=== PATIENT | male | born 1930 | race Caucasian/White ===

== ENCOUNTER 2016-06-26 14:50 | Inpatient (IN) | payer MEDICARE ==
[~2016-06-26] VITALS: Ht 182.9 cm; Wt 113.9 kg
--- NOTE | ~2016-06-26 | CON ---
PATIENT'S NAME: ANGELA JUÁREZ [facility] AGE: 85 Y [address] ROOM: [address] [place], [place] [address] LOCATION: GPCU ADMIT DATE: 06/28/2016 Consultation DISCHARGE DATE: FAMILY PHYSICIAN: Gatito Monge MD ATTENDING PHYSICIAN: DULCE SAVAGE V DATE OF CONSULTATION: 06/30/2016 REFERRING PHYSICIAN: Norman Coelho MD NEUROLOGICAL CONSULTATION DATE AND TIME: On 06/30/2016 at 11:10 a.m. REASON FOR CONSULTATION: Change in level of consciousness. HISTORY OF PRESENT ILLNESS: This is an 85-year-old, male, transferred from [place], [place] for chest pain, 01/10, which was left-sided and radiated down his arm. He states he usually gets this kind of chest pain with mild activity, however, this time it came on suddenly and was not relieved by activity or rest so he was brought to our hospital, and there were plans to do a heart catheterization. Yesterday, he was sleeping in the recliner and the nurse went to wake him up and he would not wake up. They did a sternal rub to get him to wake up. They were able to stand and pivot him to the bed, but I had seen him shortly after that, and his assessment was not at his baseline. He would open eyes to verbal stimulus. He would withdraw uppers, but he would not follow commands with his uppers and he would withdraw his lowers, but not follow any commands. He was nonverbal at the time and would return to sleep when not stimulated. His pupils were equal and reactive. There were no odd movements and his vital signs were stable. His Accu-Cheks at that time were normal. We were consulted to evaluate this event. After 2 hours, the patient was verbal and moving all 4s and stated he was very hungry. Today when we are seeing him, the patient is back to his baseline status according to his and son. REVIEW OF SYSTEMS: The patient is amnesic to the events of yesterday. He denies any aura to the event. He denies any recent incontinence or vision issues. No shortness of breath related with this event. Denies any weakness from one side or the other. All others systems were reviewed and are negative except for the pertinent positives and negatives mentioned above. PAST MEDICAL HISTORY: PATIENT'S NAME: ANGELA JUÁREZ [facility] AGE: 85 Y [address] ROOM: [address] [place], [place] [address] [facility] AD[facility] DATE: 06/28/2016 Consultation DISCHARGE DATE: FAMILY PHYSICIAN: Gatito Monge MD ATTENDING PHYSICIAN: DULCE SAVAGE V Includes: 1. Hypertension. 2. Hypercholesterolemia. 3. Coronary artery disease. He had a CABG in 2010. 4. He also has insulin-dependent diabetes and diabetic neuropathy. 5. In 2010, reviewing the records from [facility], he had an event of very similar to this, where Neurology did see him. His EEG at that time was normal. The H and P from the neurologist states that they were going to start an AED, however, the patient says he was not started on any new medications. The patient seems to be a fair historian. His also concurs with the story. SOCIAL HISTORY: The patient is and has a supportive son here. He did chew tobacco but has quit many years ago. He does not smoke. FAMILY HISTORY: There is no history of seizures in his family and no history of stroke in his family. No history of blood clots in his family. CURRENT MEDICATIONS: His current medications include: 1. Amlodipine. 2. Aspirin 81 mg p.o. q. day. 3. Hydrochlorothiazide 12.5 mg daily. 4. Lantus insulin. 5. Lyrica. 6. Meclizine p.r.n. for dizziness. However, the patient states he does not take this very often. 7. NovoLog insulin 3 times a day. 8. Atorvastatin 40. 9. Cinnamon. 10. Losartan and hydrochlorothiazide. 11. Vaso-Prophin. PHYSICAL EXAMINATION: VITAL SIGNS: Temperature 97.9, pulse 68, respirations 16, and blood pressure 134/78. He is saturating 96% on room air. GENERAL: This is a jovial man who is a good historian and has good hygiene. He is in no acute distress. NEUROLOGICAL: Pupils equal and reactive to light and accommodation. Extraocular movements are intact. His NIH Stroke Scale is 0. He has intact sensation to light touch and temperature in all extremities. Extremity strength 5/5 in upper and lower extremities. LYMPHATIC: Shows no cervical lymphadenopathy. PATIENT'S NAME: ANGELA JUÁREZ [facility] AGE: 85 Y [address] ROOM: [address] [place], [place] [address] [facility] AD[facility] DATE: 06/28/2016 Consultation DISCHARGE DATE: FAMILY PHYSICIAN: Gatito Monge MD ATTENDING PHYSICIAN: DULCE SAVAGE V HEENT: Head is atraumatic and normocephalic. LUNGS: Clear to auscultation. NECK: No nuchal rigidity or bruits auscultated. HEART: S1 and S2 with no murmurs, gallops, or rubs. ABDOMEN: Soft, nontender, and nondistended. Normal bowel sounds. GENITOURINARY: Deferred. VASCULAR: Reveals 2+ pedal pulses with 1+ pitting edema in the bilateral lower extremities which the patient states is normal for him. IMAGING DATA: A CT of his head was performed immediately after the event, it shows periventricular small-vessel ischemic changes with no evidence of ischemia or hemorrhage. Electroencephalogram was also completed immediately after the event. The EEG is mostly within normal limits with no epileptiform discharges or seizures seen during the recording. A prolactin level was drawn, however, this was probably about 40 minutes after the start of the event. It was 7.5. Of note, when looking at the graphic heart rate, there was a transient acute increase in heart rate to around 100 at the initiation of the event. ASSESSMENT AND PLAN: This is an 85-year-old, male, who presents with an episode that very could well be a seizure. He has not had any of these episodes since he was hospitalized in 2010 at [facility]. 1. Possible seizure. Since the patient has not had an episode for 6 years, we will not start an AED medication. The patient is advised not to drive and to follow safety precautions relative to seizures. He is also advised to follow up with Neurology, if these events ever happen again. From a Neurology standpoint, he is okay to continue with heart catheterization and discharge pending Hospitalist and Cardiology plan. The plan of care was developed with Dr. Savage Rojo, who examined the patient with Milana Capps APRN. Thank you for this interesting consult. Please let us know if you have any questions, and please reconsult if needed. MILANA CAPPS APRN FOR SAVAGE ROJO MD PP/camilo /[id number] d: t: 06/30/16 1933, CONSULTATION REPORT
--- NOTE | ~2016-06-26 | DS ---
PATIENT'S NAME: ANGELA JUÁREZ [facility] AGE: 85 Y [address] ROOM: [address] [place], [place] [address] LOCATION: GPCU ADMIT DATE: 06/28/2016 Discharge Summary DISCHARGE DATE: 07/01/2016 FAMILY PHYSICIAN: Gatito Monge MD ATTENDING PHYSICIAN: Gulshan Gill V PRINCIPAL DIAGNOSES: 1. Unstable angina. 2. Coronary artery disease, status post coronary artery bypass graft in 2010. 3. Type 2 diabetes. 4. Essential hypertension. HOSPITAL COURSE: An 85-year-old male with known risk factors including coronary artery disease and CABG who presents with chest pain and admitted for evaluation of unstable angina. The patient was closely followed up by Cardiology Dr. Plaza during hospitalization and had initially stress test that was positive for possible ACS and had a followup cardiac cath, which showed significant stenosis in the RCA and is status post stents placement x2 today. The patient is on a dual antiplatelet therapy with aspirin and Plavix and he is to continue this. The patient of note did have an episode of unresponsiveness briefly 2 days ago and had a workup including evaluation by Neurology for an acute stroke and all that was negative. The patient does have a history of a seizure disorder like symptoms in the past; however, was never really diagnosed with that fully. This current episode does look like it was perhaps seizure episode and confusion following that was probably postictal state. At this point, in consultation with Neurology, the plan is to have the patient follow up with the Neurology Clinic outpatient and take it from there. Overall, the patient today is chest pain free, ambulating very well, and is without complaints. The patient will be discharged with dual antiplatelet therapy. We will also adjust his home diabetic regimen and will use 15 units of Levemir nightly and moderate scale sliding scale insulin. I have instructed the patient to avoid using high doses of short-acting insulin at home, which per records show that he was taking 40 units of NovoLog with meals t.i.d. PHYSICAL EXAMINATION: GENERAL: The patient is awake, alert, oriented x3, in no acute distress. CHEST: Clear to auscultation bilaterally. HEART: S1, S2, regular rate and rhythm. ABDOMEN: Soft, nontender, nondistended. EXTREMITIES: Without edema. NEURO: Nonfocal. MEDICATIONS: Per JUN. Modifications include: PATIENT'S NAME: [employer], ANEGLA L [facility] AGE: 85 Y [address] ROOM: [place] [address] LOCATION: GPCU ADMIT DATE: 06/28/2016 Discharge Summary DISCHARGE DATE: 07/01/2016 FAMILY PHYSICIAN: Gatito Monge MD ATTENDING PHYSICIAN: Gulshan Gill V 1. Levemir 15 units nightly plus moderate scale sliding scale insulin. 2. Aspirin 81 mg daily. 3. Plavix 75 mg daily. DISPOSITION: The patient is to follow up with Outpatient Neurology Clinic, Cardiology, and primary care physician. Greater than 30 minutes were spent in discharge planning and facilitating. MD KALEY VENTURA/camilo /[id number] d: 07/02/16 0624 t: 07/18/16 1418, DISCHARGE SUMMARY
--- NOTE | ~2016-06-26 | CON ---
PATIENT'S NAME: ANGELA JUÁREZ [facility] AGE: 85 Y [address] ROOM: [address] [place], [place] [address] LOCATION: GPCU ADMIT DATE: 06/26/2016 Consultation DISCHARGE DATE: FAMILY PHYSICIAN: Gatito Monge MD ATTENDING PHYSICIAN: DULCE SAVAGE V DATE OF CONSULTATION: 06/27/2016 REFERRING PHYSICIAN: Norman Coelho MD Patient of Dr. Savage. Dear Dr. Savage: Thank you for asking me to see Mr. Juárez, who is an 85-year-old male patient, who was hospitalized with about 11 hours of chest pain. Yesterday's pain occurred fairly sharply 10 on a scale of 1-10 associated with some shortness of breath without any other radiation or associated features. Gradually, the pain seemed to have come down and gotten better. Currently, he is pain free. His initial EKG is essentially unremarkable with mostly nonspecific ST-T wave changes. There is, however, an incomplete right bundle-branch block noted. The patient has been having this kind of chest pain for the past 6 months. Today is the first time that the pain occurred at rest. Prior to that, they usually occurred when he tries to put his socks on his right foot and the pain starts in the left precordial area and generally last about an hour and spontaneously resolved. He has not been taking nitroglycerin because he is on a preparation by the name of Vaso-Prophin which is an L-arginine preparation of some kind. The patient has no other chest pains. He has a history of having had a syncopal spell and very mild discomfort in his chest in 2010 which was evaluated and he eventually ended up with three-vessel bypass grafting in [facility]. Since then, he has been doing well and has not had any major problems up until 6 months ago. Currently, he seemed to be in functional class 2. He appears to be doing some ambulation without any significant problems. He is in functional class 2-3 because of the pace with which he moves. He walks about 300 feet without any problems of chest pains or shortness of breath. There is no paroxysmal nocturnal dyspnea or orthopnea. He has never been diagnosed with sleep apnea. He has no history of lightheadedness, dizziness, syncope, or presyncope after the surgery. He denies any palpitations or ankle swelling. The patient has a history of hypertension, type 2 diabetes, elevated cholesterol, and he used to chew tobacco until the mid 1980s. He never smoked cigarettes. There is no family history of premature coronary artery disease. There is no prior history of LA, rheumatic fever, heart murmur, congestive PATIENT'S NAME: [facility] AGE: 85 Y [address] ROOM: [address] [address] LOCATION: GPCU ADMIT DATE: 06/26/2016 Consultation DISCHARGE DATE: FAMILY PHYSICIAN: Gatito Monge MD ATTENDING PHYSICIAN: DULCE SAVAGE V heart failure, or atrial fibrillation. MEDICATIONS: His current list of medications are: 1. Losartan and hydrochlorothiazide 100/25 once a day. 2. Atorvastatin 40 mg a day. 3. Tamsulosin 0.4 mg a day. 4. Norvasc 10 mg a day. 5. Lyrica 150 mg a day. 6. Aspirin 81 mg a day. 7. Meclizine 25 mg 1 to 2 tablets q.i.d. p.r.n. insulin. 8. Holton XL. 9. Vaso-Prophin. ALLERGIES: NO KNOWN DRUG ALLERGIES. PAST MEDICAL HISTORY: 1. History of vasectomy. 2. Tonsillectomy and adenoidectomy. 3. Rib removed from the left side number of years ago for an infection. 4. Cataract surgery. 5. Carpal tunnel surgery. 6. Three back surgeries for spinal stenosis. SOCIAL HISTORY: He is . He denies abusing alcohol. His appetite and weight have been stable. Sleep is fair. FAMILY HISTORY: No premature coronary artery disease. REVIEW OF SYSTEMS: 1. A 12-point review of systems reveal corrective lenses. 2. Dizziness, intermittently. 3. History of DVT in 2008. 4. Weak bladder. 5. History of polyps at the time of colonoscopy. 6. DJD. 7. History of shingles, right hip area. 8. Skin cancers. PHYSICAL EXAMINATION: VITAL SIGNS: On examination, his blood pressure is 160s/80s, heart rate is in the 60s and 70s, regular with PACs and occasional PVC. Respirations are 18, PATIENT'S NAME: [facility] AGE: 85 Y [address] ROOM: [address] [place], [place] [address] [facility] AD[facility] DATE: 06/26/2016 Consultation DISCHARGE DATE: FAMILY PHYSICIAN: Gatito Monge MD ATTENDING PHYSICIAN: DULCE SAVAGE V afebrile. HEENT: Normal. NECK: Supple. No JVD, thyromegaly, lymphadenopathy, or carotid bruit. PMI is not well located. First and second heart sounds are regular. There are no added sounds or murmurs. CHEST: Clear. ABDOMEN: Soft. EXTREMITIES: Reveal no edema. CENTRAL NERVOUS SYSTEM: Intact. LABORATORY DATA: His troponins are negative. His D-dimer is negative. ASSESSMENT: 1. An 85-year-old, male patient with known coronary artery disease presenting with a prolonged rest pain. 2. He is ruled out for myocardial infarction and his D-dimer levels are normal. RECOMMENDATIONS: 1. Echocardiogram today. 2. Lexiscan Cardiolite study in the morning. We will get hold of his bypass report from [facility]. Again, I appreciate this opportunity to participate in the care of Mr. Juárez. MD SHAGGY AVILA/camilo /[id number] d: 06/27/16 1756 t: 06/28/16 1234, CONSULTATION REPORT
--- NOTE | ~2016-06-26 | NDGEN ---
PATIENT'S NAME: ANGELA JUÁREZ [facility] AGE: 85 Y [address] ROOM: [address] [address] [facility] AD[facility] DATE: 06/28/2016 Neurodiagnostics DISCHARGE DATE: FAMILY PHYSICIAN: Gatito Monge MD ATTENDING PHYSICIAN: DULCE SAVAGE V PROCEDURE: ELECTROENCEPHALOGRAM DATE OF PROCEDURE: 06/29/2016 TEST: TECH: CLINICAL DIAGNOSIS: DURATION OF EE minutes. REASON FOR EEG: Unresponsiveness/syncope. CLINICAL HISTORY: The patient is an 85-year-old male who was transferred from [place] after he had left-sided chest pain. At this time, the pain was different that it was sudden in onset and not relieved by any activity or rest. EEG FINDINGS: The patient is awake for 50-60% of the EEG, drowsy for remaining. During the awake portions of EEG, 8-9 Hz background seen in the posterior head region which is symmetrical. Activation procedures included photic stimulation between 3-30 Hz, which did not show any abnormalities. CLASSIFICATION: Normal, awake, drowsy 10/20 scalp electrodes. IMPRESSION: This EEG is mostly within normal limits. No epileptiform discharges or EEG seizures were seen during this recording. MD SHIRA STARK/camilo /[id number] dtt: 07/01/16 0855 , DARIUSZ JUARES dtd: 06/29/16 2327
--- NOTE | ~2016-06-26 | ECHO ---
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 Summary The estimated left ventricular ejection fraction is 55-60% with normal WM.The left ventricle is mildly dilated .Mild concentric left ventricular hypertrophy. Mild aortic sclerosis. Trivial MR and TR. Procedure Type of Study TTE procedure:2D Echocardiogram, M-Mode, Doppler , Color Doppler. Procedure Date Date: 06/27/2016 Start: 09:44 AM Study Location: Inpatient Portable Technical Quality: Adequate visualization Indications:Chest pain. Appropriate Use Criteria: 9 Patient Status: Routine HR: 73 bpm BP: 141/74 mmHg M-Mode/2D Measurements LV Diastolic Dimension: 5.91 cm LV Systolic Dimension: 3.77 cm LV Septum Diastolic: 1.26 cm LV PW Diastolic: 1.18 cm AO Root Dimension: 2.8 cm Cardiac Output: 6.88 l/min LA Dimension: 3.7 cm EF Estimated: 60 % LVOT: 2.2 cm LVOT VTI: 24.8 cm RV Base: 2.8 cm LV Stroke volume: 94.23 ml RV Length: 6.99 cm TAPSE: 2.03 cm TDI-S': 11.4 cm/s Doppler Measurements AV Peak Velocity: 1.91 m/s MV Peak E-Wave: 0.82 m/s AV Peak Gradient: 14.59 mmHg MV Peak A-Wave: 0.99 m/s AV Mean Gradient: 9 mmHg MV E/A Ratio: 0.83 LVOT Peak Velocity: 1.13 m/s MV P1/2t: 80 msec TR Gradient:24.21 mmHg PV Peak Velocity: 1.24 m/s Estimated RAP:3 mmHg PV Peak Gradient: 6.15 mmHg Estimated RVSP: 27 mmHg Estimated PASP: 27.21 mmHg E' Septal Velocity: 0.05 m/s A' Septal Velocity: 0.1 m/s E' Lateral Velocity: 0.07 m/s A' Lateral Velocity: 0.12 m/s Findings Left Ventricle The left ventricle is mildly dilated .Mild concentric left ventricular hypertrophy with normal EF and WM. Right Ventricle Normal right ventricle structure and function. Left Atrium Normal left atrial size. Right Atrium Normal right atrial size. IVC measures 1.85 cm with inspiratory collapse. Mitral Valve Trivial mitral regurgitation by color Doppler. Aortic Valve The aortic valve is mildly sclerotic. Tricuspid Valve Trivial tricuspid regurgitation by color Doppler. Pulmonic Valve Trivial pulmonic valve regurgitation by color Doppler. Pericardial Effusion No evidence of pericardial effusion. Miscellaneous Visualized portions of the aortic root and ascending aorta appear normal in size. Pleural Effusion No evidence of pleural effusion. Contractility Score LV regional wall motion:(0-Non visualized 1-Normal 2-Hypokinesis 3-Akinesis 4-Dyskinesis 5-Aneurysm) Signature dtt: Susanne Dao dtd: 06/27/16 0944 Physician Self Edit
--- NOTE | ~2016-06-26 | HP ---
PATIENT'S NAME: ANGELA JUÁREZ [facility] AGE: 85 Y [address] ROOM: [place] [address] LOCATION: GPCU ADMIT DATE: 06/26/2016 History & Physical DISCHARGE DATE: FAMILY PHYSICIAN: Gatito Monge MD ATTENDING PHYSICIAN: DULCE SAVAGE V DATE OF SERVICE: CHIEF COMPLAINT: Chest pain. HISTORY OF PRESENT ILLNESS: The patient is an 85-year-old male transferred from [place]. He has a past medical history of coronary artery disease status post CABG. The patient presented to the hospital in [place] today with complaints of 10/10 left- sided sharp chest pain which radiated down his left arm. The patient reports that he occasionally gets this kind of chest pain when he is engaged in some mild physical activity such as putting on his socks and attributes it to a pulled muscle in his chest. However, he reports that this time it came on suddenly and was not relieved by any activity or rest. The patient was seen at a hospital in [place]. He was not placed on nitro because the patient takes an ugsn-bun-wvivzap supplement called Vaso- Prophin. This substance has L-arginine and is taken for sexual dysfunction. L-arginine is a nitric oxide activator and I think that is why nitro was contraindicated. His workup at the outside facility was only significant for CK-MB which was 60. Here, his cardiac enzymes and EKG are unremarkable. At this point, the patient complains of only chest pain that is 3/10 though he appears very comfortable eating Jell-O. REVIEW OF SYSTEMS: Significant for dyspnea that was accompanying his symptoms but no palpitations, diaphoresis, or syncope. All systems have been reviewed and are negative aside for pertinent positives mentioned above. PAST MEDICAL HISTORY: As reported by the patient is that of hypertension, hypercholesterolemia, coronary artery disease status post CABG, insulin-dependent diabetes, diabetic neuropathy. He is not a very good historian and I am not sure if he has any other medical problems. PATIENT'S NAME: ANGELA JUÁREZ [facility] AGE: 85 Y [address] ROOM: [place] [address] LOCATION: GPCU ADMIT DATE: 06/26/2016 History & Physical DISCHARGE DATE: FAMILY PHYSICIAN: Gatito Monge MD ATTENDING PHYSICIAN: DULCE SAVAGE V SOCIAL HISTORY: The patient was never a smoker but was a chewer of tobacco. Denies any toxic habits. FAMILY HISTORY: Reviewed and is noncontributory due to advanced age and multiple medical problems. CURRENT MEDICATIONS: 1. Amlodipine 10. 2. Aspirin 81. 3. Hydrochlorothiazide 12.5. 4. Lantus 10. 5. Lyrica 150. 6. Meclizine 25. 7. NovoLog 40 units subcu three times a day. 8. Atorvastatin 40. 9. Cinnamon. 10. Losartan-hydrochlorothiazide. 11. Vaso-Prophin. PHYSICAL EXAMINATION: VITAL SIGNS: Temperature 97.9, pulse is 64, respirations 16, blood pressure 159/81, saturating 96% on room air. GENERAL: Appears as a morbidly obese elderly male, in no acute distress. NEUROLOGIC: Nonfocal. EYES: Shows pupils are equal and reactive to light. LYMPHATIC: Shows no cervical lymphadenopathy. ENDOCRINE: Shows no thyromegaly. LUNGS: Clear to auscultation in all johnson. HEART: Heart rate is irregular with no appreciable murmurs, gallops, or rubs. ABDOMEN: Soft, nontender, and nondistended with normoactive bowel sounds. : Reveals no costovertebral angle tenderness. VASCULAR: Reveals 2+ pedal pulses with 1+ pitting bilateral lower extremity edema which patient endorses as chronic. SKIN: Warm and dry. PSYCHIATRIC: Reveals slightly peculiar mood and affect and delayed cognition, though I think these are not unexpected for his age. IMAGING DATA: EKG reveals sinus arrhythmia with left axis deviation and low voltage in limb leads. LABORATORY DATA: Lab results are unremarkable including cardiac enzymes. PATIENT'S NAME: ANGELA JUÁREZ [facility] AGE: 85 Y [address] ROOM: [place] [address] [facility] AD[facility] DATE: 06/26/2016 History & Physical DISCHARGE DATE: FAMILY PHYSICIAN: Gatito Monge MD ATTENDING PHYSICIAN: DULCE SAVAGE V ASSESSMENT AND PLAN: This is an 85-year-old male who will be admitted with intermediate chest pain. We will request records from his primary film producer, Dr. Coelho. We will monitor him on telemetry. We will obtain another set of cardiac enzymes. We will request a Cardiology consultation so we can decide on a stress test versus other modalities. Additional issues to be addressed 1. Insulin-dependent diabetes. We will continue the patient on sliding scale insulin while inpatient. 2. Essential hypertension. We will continue him on his antihypertensive regimen. 3. Diabetic neuropathy. We will continue him on his Lyrica. 4. Goals of care. The patient has a DNR with him and we will reaffirm that with the patient. 5. Additional management will depend on clinical course. Time dedicated to this patient's encounter is 25 minutes. MD RYNE ASENCIO/camilo /[id number] D: [id number] T: [id number] HISTORY & PHYSICAL
--- NOTE | ~2016-06-26 | ESTC ---
Cardiac Perfusion Imaging Demographics Patient Name LAWYER ANGELA Sam Gender Male Patient Number [id number] Race Visit Number [id number] Ethnicity Corporate ID Room Number G6312 Accession Number [id number] Height 72 inches Date of 1930 Weight 254 pounds MD Saleem Grimaldo MD Interpreting Sylwia Skinner Date of study 06/28/2016 Physician Supervising /ELIZABETH NM Technologist Colin Garcia Ordering Physician Sylwia Skinner Stress Krystal Garza MD mobile service rv technician RVT Stress ECG Reading [facility] Susanne Nurse Crista Quinn Physician inspector ball points Procedure Type: Nuclear Stress Test:Pharmacological, Lexiscan, Cardiolite Stress Test Procedure Start time: 06/28/2016 08:45 Indications: Chest pain. Risk Factors The patient risk factors include:prior CABG;treated hypercholesterolemia, treated hypertension, diabetes mellitus and dyslipidemia. Conclusions Summary TID. Medium sized area of fixed defect of basal 2/3 rd of the inferior wall of moderate degree most consistent with soft tissue attenuation. Normal EF and WM. Stress Protocols Resting ECG RSR. Pre-stress physical exam: Un changed. Predicted HR: 133 bpm ECG Findings No ECG changes suggestive of ischemia. Arrhythmias PVCs and couplets. Symptoms Chest pain with Lexiscan. Imaging Results High risk findings Summed scores - LV dilatation (TID) - Summed stress score: 16 - Summed rest score: 7 - Summed difference score: 9 Stress ejection Ejection fraction:65 % EDV :93 ml ESV :33 ml Stroke volume :60 ml LV mass :111 gr LV size:Normal Normal LV function Imaging Protocols Rest Stress Isotope:Tc99m Sestamibi IV Isotope: Tc99m Sestamibi IV Isotope dose:14.9 mCi Isotope dose:44 mCi Date:06/28/2016 07:34 Date:06/28/2016 09:45 Technique: SPECT Technique: Gated Supine SPECT Supine IV remains in place after procedure. Scan Time:30 minutes post injection Scan Time:45-60 minutes post injection Procedure Medications - Regadenoson (Lexiscan) 0.4 mg IV over 10-15 sec. I.V. . Medical History Admission Data Admission date: 06/28/2016 Admission Time: 16:30 Hospital Status: Inpatient. Signatures dtt: Susanne Dao dtjesusita: 06/28/16 0845 Physician Self Edit
--- NOTE | ~2016-06-26 | CATH ---
Cardiac Diagnostic + PCI Report Demographics Patient Name LAWYER ANGELA Sam Gender Male Date of 1930 Age 85 year(s) Patient Number [id number] Date of Study 06/30/2016 Visit Number [id number] Room Number G6312 [place] [id number] Ht 182.88 cm Wt 113.9 kg Referring Monge Primary Physician Physician Gatito BRISCOE Performing Sylwia Secondary Physician Physician Susanne BRISCOE Diagnostic Sylwia Assisting Physician Physician Susanne BRISCOE Interventional Sylwia Physician Telegraph Office Manager Physician Susanne BRISCOE Findings and Conclusions Diagnostic Findings and Conclusion DANIELS to LAD open. Moderate diffuse disease. SV graft to D1 and OM open. [place] D1 and OM mod diffuse disease. LVEDP 18. Calcification involving proximal coronaries. 3/3 bypasses open. [place] RCA 75-90% long prox/mid lesion. Diagnostic Recommendations PCI of RCA Interventional Findings and Conclusion PTCA/Stent RCA 75-90% - 0%. JOSE ALFREDO 3 flow. Perclosed. Interventional Recommendations Continue medical therapy. Procedure Description The patient was brought to the diagnostic cardiac catheterization-EP laboratory in the fasting, non-sedated state. Informed consent was obtained in the written and verbal form after the risks and benefits were explained. The patient had no further questions and agreed to proceed. The planned puncture-incision site(s) were shaved and prepped with ChloraPrep and draped in the usual sterile manner. Conscious sedation, supplemental oxygen, and pain control medications were delivered by a registered nurse under physician guidance. Surface ECG rhythm, blood pressure measurement, and pulse oximetry were monitored throughout the procedure. Arterial access. The access site was infiltrated with lidocaine. The vessel was entered with the Seldinger technique. A sheath was advanced into the vessel and used for catheter placement. Selective left coronary angiography. A catheter was advanced into the left coronary vessel ostium under Fluoroscopic guidance. Contrast was injected by hand. Images were obtained in multiple projections. Selective right coronary angiography. A catheter was advanced into the right coronary vessel ostium under fluoroscopic guidance. Contrast was injected by hand. Images were obtained in multiple projections. Left heart catheterization. A catheter was advanced across the aortic valve to the left ventricle under fluoroscopic guidance. Resting hemodynamics were obtained. Angioplasty and Stent Placement: A guiding catheter was used to intubate the vessel. A 0.14 wire was then used to cross the lesion. A balloon catheter was placed across the lesion and inflated. The balloon catheter was then removed. A Drug Eluting Stent was placed and inflated. Post placement angiograms were performed. Arterial artery hemostasis was achieved. The patient was transferred to a regular nursing floor via cart accompanied by a nurse. The patient left the laboratory in stable condition. Diagnostic Cath Status: Urgent Interventional Cath Status: Urgent Procedure Procedure Type Diagnostic procedure:Angiography:, Coronary Angios w/[facility] PCI procedure:Drug Eluting Coronary Stent:, RCA Indications: Positive Nuclear: Intermediate. Angiographic Findings Dominance: Right Cardiac Arteries and Lesion Findings LMCA: Lesion on LMCA: 80% stenosis . LAD: Lesion on Mid LAD: 60% stenosis . Comments:After D1 Lesion on 1st Diag: Ostial.80% stenosis . LCx: Lesion on 1st Ob Mindy% stenosis . RCA: Lesion on Prox RCA: Mid subsection.90% stenosis 40 mm length reduced to 0%. Pre procedure JOSE ALFREDO II flow was noted. Post Procedure JOSE ALFREDO III flow was present. The guidewire cross was successful.The lesion was diagnosed as a low risk lesion.The lesion was diffuse.Culprit lesion. Treatment results:Interventional treatment was successful. Devices used - Luge Wire .014 x 182. Number of passes: 1. - Emerge Balloon 2.25 x 20. 1 inflation(s) to a max pressure of: 8 rickie. - Promus Premier 2.25 x 32 Stent. 1 inflation(s) to a max pressure of: 14 rickie. - Grand Slam Wire 0.14 x 180. Number of passes: 1. - Promus Premier 2.25 x 8 Stent. 1 inflation(s) to a max pressure of: 16 rickie. - NC Emerge Balloon 2.25 x 20. 2 inflation(s) to a max pressure of: 16 rickie. Cardiac Grafts - There is a graft that originates at the Aorta Left and attaches to the 1st Diag (Open).The graft from 1st Diag jumps to 2nd Ob Mindy. - There is a DANIELS graft that originates at the DANIELS and attaches to the Mid LAD (Open). Coronary Tree Procedure Data Procedure Date Date: 06/30/2016Start: 02:26 PMEnd: 04:31 PM Entry Locations - Retrograde Percutaneous access was performed through the Right Femoral artery (Primary location). A 7 Fr sheath was inserted. This was exchanged for a 7 Fr sheath. Procedure Medications Order and Administration + + + + + !Time !Medication !Dosage !Route ! + + + + + !06/30/2016 02:20 PM !Fentanyl !50 mcg !I.V. ! + + + + + !06/30/2016 02:20 PM !Versed !1 mg !I.V. ! + + + + + !06/30/2016 02:47 PM !Heparin (ACC_3) !24809 units !I.V. bolus ! + + + + + !06/30/2016 03:14 PM !Integrilin (ACC_7) !20.4 mg !I.V. bolus ! + + + + + !06/30/2016 03:15 PM !Integrilin (ACC_7) !2 mcg/kg/min !I.V. drip ! + + + + + !06/30/2016 03:23 PM !Integrilin (ACC_7) !20.4 mg !I.V. bolus ! + + + + + !06/30/2016 03:28 PM !0.9% NaCl !100 ml !I.V. bolus ! + + + + + !06/30/2016 03:29 PM !Nitroglycerin !100 mcg !I.C. ! + + + + + !06/30/2016 03:31 PM !Versed !1 mg !I.V. ! + + + + + !06/30/2016 03:34 PM !Fentanyl !50 mcg !I.V. ! + + + + + !06/30/2016 03:56 PM !Oxygen !4 l/min !NC ! + + + + + !06/30/2016 04:20 PM !Plavix (ACC_8) !600 mg !P.O. ! + + + + + !06/30/2016 04:20 PM !Aspirin (ACC_4) !325 mg !P.O. ! + + + + + Devices Used - A6 Fr. BS JR 4 Diag. Catheterwas used for:Right coronary angiography. - A6 Fr. BS IMT Diag. Catheterwas used for:DANIELS. - A6 Fr. BS JL 4 Diag. Catheterwas used for:Left coronary angiography. - A6 Fr. AR1 guide catheterwas used for:RCA Intervention. - A6 Fr. AR1 guide catheterwas used for:RCA Intervention. - A6 Fr. JR4 Guide Catheterwas used for:RCA Intervention. - A6 Fr. 3DRC JJ Guide Catheterwas used for:RCA Intervention. Contrast Material - Isovue 259353 ml Fluoroscopy Time: Diagnostic: 53:18 minutes. Total: 53:18 minutes. Fluoroscopy Dose: Diagnostic: 6652 mGy. Total: 6652 mGy. Estimated Blood Loss: [address] [facility] PCI Information PCI Indication:PCI for high risk Non-STEMI or unstable angina. Medical History Allergies - Other:(Indomethacin). Risk Factors The patient risk factors include: prior CABG on 03/02/2011;treated hypercholesterolemia, treated hypertension, insulin-treated diabetes mellitus, last creatinine: 1.1 mg/dl, creatinine clearance: 76.22 ml/min and dyslipidemia. Admission Data Admission Date: 06/28/2016 Admission Time: 04:30 PM Insurance Payors: Private health insurance and Medicare. Clinical Evaluation Leading to Procedure - The patient's CAD presentation was assessed as: Unstable angina. - The patient's anginal syndrome during the past two weeks was assessed as: Class IV according to the [place] Cardiovascular Society Classification System (CCS). Anti-anginal medications were prescribed during the past two weeks. The medication is: Ca channel Blockers. Hemodynamics Condition: Rest O2 Consumption: Estimated: 261.86Heart Rate: 65 bpm Pressures (mmHg) +-----+ + !Site !Pressure ! +-----+ + !AO !123/62 (87) ! +-----+ + !LV !152/8 ,18 ! +-----+ + !LV !152/12 ,19 ! +-----+ + !AO !152/72 (101) ! +-----+ + !LV !153/9 ,27 ! +-----+ + !AO !120/67 (89) ! +-----+ + Valve Gradients and Areas + +---------+---------+---------+ +---------+ + !Valve !Peak !Mean !Area !Index !Flow !Source ! + +---------+---------+---------+ +---------+ + !Aortic !0 !0 ! ! ! ! ! + +---------+---------+---------+ +---------+ + !Aortic !0 !0 ! ! ! ! ! + +---------+---------+---------+ +---------+ + Shunts Oxygen Values O2 Capacity 195.84 O2 Consumption 261.86 Discharge Data Discharge Date: 07/01/2016 Hospital Status: Inpatient Signatures dtt: Susanne Dao dtjesusita: 06/30/16 1426 Physician Self Edit
[2016-06-26] MEDS ORDERED: HYZAAR 100-251 EACH PO (18:10)
[2016-06-26] MEDS ORDERED: LIPITOR40 MG PO (18:11)
[2016-06-26] MEDS ORDERED: FLOMAX0.4 MG PO (18:11)
[2016-06-26] MEDS ORDERED: NORVASC10 MG PO (18:12)
[2016-06-26] MEDS ORDERED: LYRICA 150MG C150 MG PO (18:13)
[2016-06-26] MEDS ORDERED: ASPIRIN325 MG PO (18:14)
[2016-06-26] MEDS ORDERED: MECLIZINE HCL25 MG PO (18:16)
[2016-06-26] MEDS ORDERED: NOVOLOG100 UNIT/M SUB-Q (18:17)
[2016-06-26] MEDS ORDERED: [UNRECOGNIZED DRUG - OTHER] PO (18:23)
[2016-06-26] MEDS ORDERED: OMEGA XL PO (18:23)
--- NOTE | 2016-06-26 18:47 | NUR ---
Significant Event: A/O x3, cooperative with cares. SBP 150, HR 62, oxygen at 2 liters. Rating chest pain 2/10 in L) lateral chest. Stood at bedside to use urinal; c/o dizziness at that time. Dr. Gill notified of admission Follow up:
--- NOTE | 2016-06-26 18:51 | NUR ---
Patient present to ER in [place] with c/o chest pain that started around noon. Rated pain 10/10 et was in L) anterior chest et down L) arm; was also dizzy (c/o room spinning), diaphoretic et short of breath at that time. Patient states that this has been going on for approximatley a month on et off but only last for a brief amount of time. Recieved metoprolol in ER as unable to treat with nitro d/t patient having taken an OTC male enhancement supplement the night before. HX 3 vessel CABG in 2010, bilateral shoulder surgeries, R) total knee, neck surgery, CAD, IDDM
[2016-06-26 19:17] LABS: BASOPHIL # 0.1 K/uL (0.0-0.2); BASOPHIL % 0.5 %; EOSINOPHIL # 0.4 K/uL (0.0-0.5); HEMATOCRIT 43.8 % (33.0-50.0); HEMOGLOBIN 14.5 g/dL (11.0-16.0); IMMATURE GRANULOCYTE % 0.4 %; LYMPHOCYTE # 2.4 K/uL (0.8-4.0); LYMPHOCYTE % 21.8 %; MCH 29.4 pg (27.0-34.0); MCHC 33.1 gm/dL (32.0-36.5); MCV 88.8 fl (83.0-98.0); MONOCYTE # 0.9 K/uL (0.0-1.0); MONOCYTE % 8.6 %; NEUTROPHIL % 64.7 %; NRBC % 0 /100WBC (0-0.00); PLATELET COUNT 169 K/uL (150-450); RBC 4.93 M/uL (3.50-5.50); RDW-CV 13.2 % (11.9-14.6); WBC 10.8 K/uL (4.0-11.0)
[2016-06-26 19:31] LABS: ALBUMIN 3.5 gm/dL (3.5-5.0); ALK PHOS 100 IU/L (33-138); ALT 18 IU/L (12-78); ANION GAP 11.5 (10.0-19.0); AST 13 IU/L (10-40); BLOOD UREA NITROGEN 15 mg/dL (6-24); CALCIUM 8.4 mg/dL (8.5-10.5); CHLORIDE 100 mMol/L (96-110); CO2 31 mMol/L (22-32); CPK 105 IU/L (35-332); CREATININE 1.1 mg/dL (0.6-1.3); ESTIMATED GFR (MDRD EQUATION) > 60; MAGNESIUM 1.9 mg/dL (1.3-2.6); PHOSPHORUS 2.3 mg/dL (2.5-4.9); POTASSIUM 3.5 mMol/L (3.7-5.1); SODIUM 139 mMol/L (135-145); TOTAL BILIRUBIN 0.4 mg/dL (0.0-1.5); TOTAL PROTEIN 6.7 g/dL (6.0-8.4)
[2016-06-26 21:24] LABS: BILIRUBIN URINE NEGATIVE (NEGATIVE); BLOOD URINE NEGATIVE /UL (NEGATIVE); COLOR URINE YELLOW (YELLOW); GLUCOSE URINE NEGATIVE (NEGATIVE); KETONE URINE NEGATIVE (NEGATIVE); LEUKOCYTES URINE NEGATIVE /UL (NEGATIVE); NITRITE URINE NEGATIVE (NEGATIVE); PROTEIN URINE NEGATIVE (NEGATIVE); TURBIDITY URINE CLEAR (CLEAR); UROBILINOGEN URINE NORMAL (NORMAL)
[2016-06-27 00:53] LABS: CPK 103 IU/L (35-332)
--- NOTE | 2016-06-27 04:37 | NUR ---
Pt alert and very talkative all noc. vss on ra, afebrile, nsr. sba. fww to rr. incontinent of urine-urgency. no chest pain all noc. cardiac enzymes negative so far. next at 0600. Plan: trend enzymes, d/c?
[2016-06-27 06:02] LABS: BASOPHIL % 0.4 %; EOSINOPHIL # 0.4 K/uL (0.0-0.5); EOSINOPHIL % 4.6 %; HEMATOCRIT 43.3 % (33.0-50.0); HEMOGLOBIN 14.4 g/dL (11.0-16.0); IMMATURE GRANULOCYTE % 0.3 %; LYMPHOCYTE # 1.8 K/uL (0.8-4.0); LYMPHOCYTE % 19.1 %; MCH 29.6 pg (27.0-34.0); MCHC 33.3 gm/dL (32.0-36.5); MCV 88.9 fl (83.0-98.0); MONOCYTE # 0.9 K/uL (0.0-1.0); MPV 9.6 fl (9.4-12.4); NEUTROPHIL % 65.6 %; NRBC % 0 /100WBC (0-0.00); PLATELET COUNT 147 K/uL (150-450); RBC 4.87 M/uL (3.50-5.50); RDW-CV 13.2 % (11.9-14.6); WBC 9.1 K/uL (4.0-11.0)
[2016-06-27 06:12] LABS: PTT 29 SECONDS (25-32)
[2016-06-27 06:20] LABS: CPK 91 IU/L (35-332)
[2016-06-27 06:22] LABS: ALBUMIN 3.2 gm/dL (3.5-5.0); ALK PHOS 91 IU/L (33-138); ALT 17 IU/L (12-78); ANION GAP 13.7 (10.0-19.0); AST 11 IU/L (10-40); BLOOD UREA NITROGEN 16 mg/dL (6-24); CALCIUM 8.6 mg/dL (8.5-10.5); CHLORIDE 102 mMol/L (96-110); CO2 28 mMol/L (22-32); CREATININE 1.1 mg/dL (0.6-1.3); ESTIMATED GFR (MDRD EQUATION) > 60; POTASSIUM 3.7 mMol/L (3.7-5.1); SODIUM 140 mMol/L (135-145); TOTAL BILIRUBIN 0.9 mg/dL (0.0-1.5); TOTAL PROTEIN 6.4 g/dL (6.0-8.4)
[2016-06-27 11:12] LABS: CPK 94 IU/L (35-332)
--- NOTE | 2016-06-27 11:30 | NUR ---
Diabetes consult: Patient with Type II diabetes and current A1C of 7.4%. Diabetes survival skill checklist reviewed with the patient. The patients sees Dr. Plata in [facility] for his diabetes. Patient reports he was taken of his Levemir and instructed to take Novolog 40 units with every meal. Patient denies having frequent low blood sugars at home. Patient denies any questions.
[2016-06-27 14:41] LABS: CPK 107 IU/L (35-332)
--- NOTE | 2016-06-27 15:12 | NUR ---
Introduced self and role of care management to patient and family. He lives with his in [facility]. He states that terri is able to do some of his own ADL's. His does assist as needed. He uses a cane at home. He plans on returning home on discharge. He denies any needs at this time. Will continue to follow.
--- NOTE | 2016-06-27 16:42 | NUR ---
Significant Event: A/O x3, cooperative with cares. VSS, SBPs 130-160s, HRs 60-70s, on room air. C/O headache; resolved by the time tylenol order obtained. Dr. Dao seen patient; aneesh ordered for tomorrow. PT/OT eval et tx patient; ambulate ha with SBA et walker. Follow up: NPO after midnight
--- NOTE | 2016-06-28 04:50 | NUR ---
PT SLEPT OFF AND ON ALL NIGHT. SBA FWW. BED/CHAIR ALARMS AT ALL TIMES. UNSTEADY OCCASIONALLY. KEEP WALKER WITHIN REACH JUST IN CASE. VSS RA AFEBRILE. PLAN: NUC STRESS TODAY
--- NOTE | 2016-06-28 10:55 | NUR ---
Diabetes consult: Patient is down having a stress test. Visited with patient's and son at bedside. reports the patient has been meeting with a coding educator in [place]. denies questions or concerns.
--- NOTE | 2016-06-28 16:36 | NUR ---
Significant Event: A/O x3, cooperative with cares. VSS, SBPs 120-150s, HRs 70s, on room air. No c/o pain. Lexiscan today. Up in room with SBA/1 assist; ambulate ha with physical therapy x2. Family here today. Plan is for a heart cath in the AM; consents not signed. Follow up: clear liquids until 0600 et NPO after that; prep for heart cath
--- NOTE | 2016-06-29 04:41 | NUR ---
PT SLEPT ALL NOC. VSS ON RA, AFEBRILE. SBA X1. ON PORTABLE TELE. NO C/O CHEST PAIN OR ANY PAIN. DOES C/O CHRONIC COUGH-STATES HAS HAD FOR MANY YEARS. PLAN: [facility] AT 1500.
--- NOTE | 2016-06-29 17:08 | NUR ---
Significant Events: Patient A&Ox3, but had unresponsive episode today at about 1340. Required sternal rubbing and other painful stimuli to arouse. Evaluated by Liana Sharma and Dr. Cordova. CT scan of head and EEG done. VSS on RA with no vital signs changes during unresponsive episode. Patient was to have heart cath but cancelled due to episode until cleared by neuro. Patient is a one assist with cane and gaitbelt. IV in right AC is SL. Follow up: Continue as per plan of care. Awaiting EEG results. Monitor neuro status/seizure precautions. Heart cath pending neuro clearance.
--- NOTE | 2016-06-30 04:03 | NUR ---
Significant Event: Patient is alert and oriented x3. VSS. Afebrile. Denies BURNHAM, N/T, pain. Generalized weakness. PERRLA. No noted seizures. Right hand first two fingers have N/T-carpal tunnel. SA-pulses are thready. 2+ BLE edema. Room air clear-did not apply O2 this shift. ADA diet-accu checks ACHS-10 units of levemir/Novolog moderate scale. Last BM-06/28-active x4. 1A GB/cane. R) AC sl'd-flushes well. Takes pills whole with water. Follow up: Continue plan of care. Monitor for seizures.
--- NOTE | 2016-06-30 11:47 | NUR ---
A - PT SCREENED D/T LOS. 2+ EDEMA. LABS: ACCUCHECK REAS->300, GLU 182, ALB 3.2, PHOS 2.3. MEDS: LEVEMIR, SSI. HT: 72" WT: 251# BMI: 34.5. NEEDS: 6163-4482 KCAL (15-20 KCAL/KG), 91-114 G PRO (0.8-1 G/KG), 2850 ML FLUID (25 ML/KG). DIET: DIABETIC. INTAKE: 75-100% D - NO NUTRITION RELATED DIAGNOSIS IDENTIFIED AT THIS TIME. I - GOAL FOR INTAKE TO REMAIN 75-100% FOR DURATION OF STAY. M/E - WILL ASSIST NEEDED.
--- NOTE | 2016-06-30 12:20 | NUR ---
reviewed student charting and on the floor from [phone] kaleigh rn-ccc
--- NOTE | 2016-06-30 15:14 | NUR ---
Diabetes Center note: Visited with patient and spouse briefly, as they have completed the Diabetes Survival Skills Assessment form, but state they have concerns because his blood sugars have been elevated while here at the hospital. Discussed possible rational for this and patient states he doesn't remember much about yesterday, plans for patient to have heart cath possibly later today.
--- NOTE | 2016-06-30 19:15 | NUR ---
Significant Event: Alert and oriented X 3. Room Air. SBP 120's and 140's. HR 70's and 80's. Equal moderate strength. Last bowel movement 06/29/16. Callus to right great toe, WOC consulted. Edema lower extremities +2. ACHS accuchecks 223, 217 and 172. Left hand peripheral IV, fluids running. Normal saline running at 75 ml/hour. Seizure precautions. Heart cath today through right groin. 2 stents to RCA. Arrived back to floor at 1658. Dressing saturated pressure held for 15 minutes. Gauze and tegaderm reapplied. 183 dressing saturated and changed. Surrounding area soft. Lay flat for 4 hours, Ambulate at 6 hours. Pleasant and cooperative with cares. Follow up:
[2016-06-30 21:34] LABS: BASOPHIL # 0.1 K/uL (0.0-0.2); BASOPHIL % 0.7 %; EOSINOPHIL # 0.3 K/uL (0.0-0.5); EOSINOPHIL % 3.5 %; HEMATOCRIT 43.4 % (33.0-50.0); HEMOGLOBIN 15.2 g/dL (11.0-16.0); IMMATURE GRANULOCYTE # 0.1 K/uL (0.0-0.3); IMMATURE GRANULOCYTE % 1.3 %; LYMPHOCYTE # 1.7 K/uL (0.8-4.0); LYMPHOCYTE % 18.5 %; MCH 30.4 pg (27.0-34.0); MCV 86.8 fl (83.0-98.0); MONOCYTE # 0.9 K/uL (0.0-1.0); MONOCYTE % 9.9 %; MPV 9.8 fl (9.4-12.4); NEUTROPHIL % 66.1 %; NRBC % 0 /100WBC (0-0.00); PLATELET COUNT 156 K/uL (150-450); WBC 9.1 K/uL (4.0-11.0)
[2016-07-01 04:43] LABS: BASOPHIL % 0.4 %; EOSINOPHIL # 0.3 K/uL (0.0-0.5); EOSINOPHIL % 2.6 %; HEMATOCRIT 40.9 % (33.0-50.0); HEMOGLOBIN 13.9 g/dL (11.0-16.0); IMMATURE GRANULOCYTE % 0.3 %; LYMPHOCYTE # 1.7 K/uL (0.8-4.0); LYMPHOCYTE % 16.2 %; MCH 30.1 pg (27.0-34.0); MCV 88.5 fl (83.0-98.0); MONOCYTE # 1.1 K/uL (0.0-1.0); MPV 9.9 fl (9.4-12.4); NEUTROPHIL # (ANC) 7.1 K/uL (1.4-9.0); NEUTROPHIL % 69.5 %; NRBC % 0 /100WBC (0-0.00); PLATELET COUNT 166 K/uL (150-450); RBC 4.62 M/uL (3.50-5.50); RDW-CV 13.1 % (11.9-14.6); WBC 10.2 K/uL (4.0-11.0)
[2016-07-01 05:03] LABS: ALBUMIN 3.1 gm/dL (3.5-5.0); ANION GAP 12.8 (10.0-19.0); CALCIUM 8.3 mg/dL (8.5-10.5); CREATININE 1.3 mg/dL (0.6-1.3); POTASSIUM 3.8 mMol/L (3.7-5.1); TOTAL PROTEIN 6.6 g/dL (6.0-8.4)
[2016-07-01 05:05] LABS: TOTAL BILIRUBIN 0.7 mg/dL (0.0-1.5)
--- NOTE | 2016-07-01 05:23 | NUR ---
A/O. HR 70-90s. SBP 100-160s. ROOM AIR. OOZING FROM R) GROIN CATH SITE. DRESSING CHANGEDx2. MAUNUAL PRESSURE HELD FOR 45 MIN. NOW SITE NONOOZING, SOFT, NONTENDER. PATIENT DENIES PAIN. VOIDS PER URINAL. 1A GAITBELT TRANSFERS.
--- NOTE | 2016-07-01 12:15 | NUR ---
Spoke with patient and . Patient is going home today. They deny discharge needs at this time. Son will come and drive them home.
[2016-07-01] MEDS ORDERED: PLAVIX75 MG PO (14:31)
[2016-07-01] MEDS ORDERED: NOVOLOG100 UNIT/1 SUB-Q (14:39)
[2016-07-01] MEDS ORDERED: LEVEMIR100 UNIT/1 SUB-Q (14:42)
[2016-07-01] MEDS ORDERED: LIPITOR80 MG PO (14:47)
[2016-07-01] MEDS ORDERED: NITROSTAT 0.40.4 MG SL (14:51)
--- NOTE | 2016-07-01 15:19 | NUR ---
Diabetes Consult: Patient is being dismissed to home today. Patient was instructed on use of the Novolog correction scale, as well as how to coordinate insulin with meals. Patient was able to verbalize the correct dose of insulin to inject, given blood sugar scenarios. The patient reports being on Levemir in the past and denies questions. Diabetes assessment completed.
== END 2016-07-01 15:15 | disposition disaster alternative care site (69) | DRG 246 ==
LOC: GPCU 14:50
PROVIDERS: Internal Medicine; Internal Medicine Interventional Cardiology; ADMIT Internal Medicine
PROC: 027035Z Dilation of Coronary Artery, One Artery with Two Drug-eluting Intraluminal Devices, Percutaneous Approach (ICD-10-PCS; principal; 2016-06-30)
PROC: 4A023N7 Measurement of Cardiac Sampling and Pressure, Left Heart, Percutaneous Approach (ICD-10-PCS; principal; 2016-06-30)
PROC: B2111ZZ Fluoroscopy of Multiple Coronary Arteries using Low Osmolar Contrast (ICD-10-PCS; principal; 2016-06-30)
PROC: 3E033PZ Introduction of Platelet Inhibitor into Peripheral Vein, Percutaneous Approach (ICD-10-PCS; principal; 2016-06-30)
DX: I25.110 Atherosclerotic heart disease of native coronary artery with unstable angina pectoris (principal); G93.40 Encephalopathy, unspecified; E11.40 Type 2 diabetes mellitus with diabetic neuropathy, unspecified; R56.9 Unspecified convulsions; I25.84 Coronary atherosclerosis due to calcified coronary lesion; I10 Essential (primary) hypertension; E78.5 Hyperlipidemia, unspecified; Z95.1 Presence of aortocoronary bypass graft; Z86.718 Personal history of other venous thrombosis and embolism; Z86.010 Personal history of colon polyps; Z79.4 Long term (current) use of insulin; Z79.02 Long term (current) use of antithrombotics/antiplatelets; Z79.82 Long term (current) use of aspirin; Z66 Do not resuscitate; M19.90 Unspecified osteoarthritis, unspecified site; Z87.2 Personal history of diseases of the skin and subcutaneous tissue; E66.01 Morbid (severe) obesity due to excess calories; Z68.34 Body mass index [BMI] 34.0-34.9, adult
CPT/HCPCS: A9500; C1725; C1760; C1769; C1874; C1887; C9600; G0378; G8978; G8979; G8980; G8981; G8982; G8983; J0280; J1327; J1644; J2250; J2785; J3010; J7030